=== PATIENT | female | born 1970 | race American Indian/Alaskan Native ===

== ENCOUNTER 2018-12-28 19:32 | Emergency (ER) | payer MEDICARE, MEDICAID ==
--- NOTE | 2018-12-28 20:01 | Emergency Department Report ---
Blank Doc - Documentation Documentation: 48 y/o female comes in for left ankle pain after stepping down stair heard her left ankle pop.
--- NOTE | 2018-12-28 21:16 | XRay Report ---
PROCEDURE: XR ANKLE 3+V LT TECHNIQUE: Left ankle radiographs, AP, lateral, and oblique views. HISTORY: ankle swelling and pain. COMPARISONS: None . FINDINGS: Fracture (s) and/or Dislocation(s): Small avulsion fracture is noted at the tip of lateral malleolus . Alignment: Normal . Joint space(s): Normal . Soft tissues: Mild degree soft tissue swelling is noted over the lateral malleolus . Bone mineralization: Normal . Foreign bodies: None . Calcaneal spurring: None . IMPRESSION: A small avulsion fracture is noted at the tip of lateral malleolus. This document is electronically signed by Ketan Vang MD., Dec 28 2018 09:14:25 PM ET
[2018-12-28] MEDS ORDERED: PERCOCET 5/325 PO ONE (22:56)
[2018-12-28] MEDS ORDERED: IBUPROFEN PO ONE (22:57)
[2018-12-28] MEDS ORDERED: ZOFRAN ODT PO ONE (22:57)
[2018-12-28] MEDS ORDERED: BENADRYL PO ONE ×2 (23:08→23:10)
--- NOTE | 2018-12-29 00:49 | Emergency Department Report ---
ED Fall HPI - General Chief Complaint: Extremity Injury, Lower Stated Complaint: LEFT ANKLE INJURY Time Seen by Provider: 12/28/18 21:00 Source: patient, EMS Mode of arrival: Wheelchair - History of Present Illness Initial Comments: Patient is a 48-year-old -British female with a history of chronic sickle cell disease with frequent exacerbations, chronic low back pain and sciatica who presents with a complaint of acute onset severe left ankle and foot pain after she slipped and fell down on the floor in a [place] theater 2 hours ago and twisted the left foot and ankle about 2 hours ago. Patient denies head or neck injury, no back pain, abdominal pain, loss of consciousness, seizures, syncope, chest pain, shortness of breath, numbness and tingling or weakness of l eft leg and change in vision. Patient states that the pain is worse with ambulation. MD Complaint: fall, other (left ankle pain and swelling) -: Sudden, hour(s) (2) Fall From: standing, other (slipped and fell down on the floor) When Fall Occurred: 1-3 hours [employer] Fall Witnessed: yes, by family Place Fall Occurred: other (Movie Theater) Loss of Consciousness: none Prolonged Down Time?: no Symptoms Prior to Fall: none Location: other (left ankle and foot) Location - Extremities: Left: Ankle (pain, swelling and deforty), Foot (pain) Severity scale (0 -10): 8 Quality: sharp, aching Context: tripped/slipped Associated Symptoms: denies: headache, neck pain, numbness, weakness, chest paint, shortness of breath, abdominal pain, hematuria, unable to walk, lightheaded, vertigo, confusion - Related Data Previous Rx's Medication Instructions Recorded Last Taken Type Ibuprofen [Motrin] 800 mg PO Q8HR PRN #20 tablet 12/29/18 Unknown Rx Oxycodone HCl/Acetaminophen 1 each PO Q6H #12 tablet 12/29/18 Unknown Rx [Percocet 7.5/325 mg] Allergies Allergy/AdvReac Type Severity Reaction Status Date / Time morphine AdvReac Hives Verified 12/28/18 23:12 Opioids - Morphine Analogues AdvReac Hives Verified 12/28/18 23:11 ED Review of Systems ROS: Stated complaint: LEFT ANKLE INJURY Other details as noted in HPI Comment: All other systems reviewed and negative Constitutional: no symptoms reported, see HPI. denies: chills, diaphoresis, fever, malaise, weakness Eyes: as per HPI. denies: eye pain, eye discharge, vision change ENT: as per HPI. denies: ear pain, throat pain, dental pain, hearing loss, congestion Respiratory: no symptoms reported, see HPI. denies: cough, orthopnea, shortness of breath, SOB with exertion, SOB at rest Cardiovascular: as per HPI. denies: chest pain, palpitations, orthopnea, edema, syncope Endocrine: no symptoms reported, see HPI. denies: excessive sweating, flushing, intolerance to cold Gastrointestinal: as per HPI. denies: abdominal pain, nausea, vomiting, diarrhea, constipation, hematemesis, hematochezia Genitourinary: as per HPI. denies: frequency, hematuria Musculoskeletal: as per HPI, joint swelling (left ankle and foot), arthralgia (left ankle). denies: back pain Skin: as per HPI. denies: rash, lesions, change in color, change in hair/nails Neurological: as per HPI. denies: headache, weakness, numbness, paresthesias, confusion, abnormal gait, vertigo Psychiatric: as per HPI Hematological/Lymphatic: as per HPI ED Past Medical Hx - Past Medical History Previous Medical History?: Yes Hx Hypertension: Yes Hx Sickle Cell Disease: Yes - Surgical History Past Surgical History?: Yes Additional Surgical History: gastric bypass 2003 - Social History Smoking Status: Never Smoker Substance Use Type: None - Medications Home Medications: Home Medications Medication Instructions Recorded Confirmed Last Taken Type Ibuprofen [Motrin] 800 mg PO Q8HR PRN #20 tablet 12/29/18 Unknown Rx Oxycodone HCl/Acetaminophen 1 each PO Q6H #12 tablet 12/29/18 Unknown Rx [Percocet 7.5/325 mg] ED Physical Exam - General Limitations: No Limitations General appearance: in no apparent distress - Head Head exam: Present: atraumatic, normocephalic, normal inspection - Eye Eye exam: Present: normal appearance, PERRL, EOMI Pupils: Present: normal accommodation - ENT ENT exam: Present: normal exam, normal orophraynx, mucous membranes moist, TM's normal bilaterally, normal external ear exam - Neck Neck exam: Present: normal inspection, full ROM. Absent: tenderness - Respiratory Respiratory exam: Present: normal lung sounds bilaterally. Absent: respiratory distress, wheezes, rales, chest wall tenderness, decreased breath sounds - Cardiovascular Cardiovascular Exam: Present: regular rate, normal rhythm, normal heart sounds - GI/Abdominal GI/Abdominal exam: Present: soft. Absent: distended, tenderness, guarding, rebound, hyperactive bowel sounds, hypoactive bowel sounds - Rectal Rectal exam: Present: deferred - Extremities Exam Extremities exam: Present: tenderness (left ankle tenderness with limited ROM due to pain), normal capillary refill, joint swelling (left ankle). Absent: full ROM (due to pain), calf tenderness - Back Exam Back exam: Present: normal inspection, full ROM. Absent: tenderness, CVA tenderness (R), CVA tenderness (L), muscle spasm, paraspinal tenderness - Neurological Exam Neurological exam: Present: alert, oriented X3, CN II-XII intact, normal gait, reflexes normal - Psychiatric Psychiatric exam: Present: normal affect - Skin Skin exam: Present: warm, dry, intact, normal color ED Course Vital Signs 12/28/18 19:54 Temperature 98.4 F Pulse Rate 80 Respiratory 18 Rate Blood Pressure 153/101 O2 Sat by Pulse 99 Oximetry - Reevaluation(s) Reevaluation #1: 12/29/18 00:58 Patient is alert and oriented 3 and is not in distress. Patient is treated for pain in left ankle x-ray shows a small avulsion fracture at the tip of the left lateral malleolus. Patient's left ankle was splinted in a posterior OCL splint, and the patient fitted with crutches. On reevaluation, patient's pain is well controlled with medications. Patient was discharged home on pain medications and referred to the orthopedic surgeon Dr. Bearden for follow up. Patient was advised to return to the ED immediately if symptoms get worse. 12/29/18 01:01 ED Medical Decision Making - Radiology Data Radiology results: report reviewed, image reviewed Left ankle x-ray shows a small avulsion fracture at the tip of left lateral Malleolus. - Medical Decision Making Patient is alert and oriented 3 and is not in distress. Patient is treated for pain in left ankle x-ray shows a small avulsion fracture at the tip of the left lateral malleolus. Patient's left ankle was splinted in a posterior OCL splint, and the patient fitted with crutches. On reevaluation, patient's pain is well controlled with medications. Patient was discharged home on pain medications and referred to the orthopedic surgeon Dr. Bearden for follow up. Patient was advised to return to the ED immediately if symptoms get worse. - Differential Diagnosis Left ankle fracture, Left ankle sprain, left foot contusion Critical care attestation.: If time is entered above; I have spent that time in minutes in the direct care of this critically ill patient, excluding procedure time. ED Disposition Clinical Impression: Fracture of left ankle, lateral malleolus Qualifiers: Encounter type: initial encounter Fracture type: closed Fracture alignment: displaced Qualified Code(s): S82.62XA - Displaced fracture of lateral malleolus of left fibula, initial encounter for closed fracture Sprain of left foot Qualifiers: Encounter type: initial encounter Qualified Code(s): S93.602A - Unspecified sprain of left foot, initial encounter Disposition: TO HOME OR SELFCARE Is pt being admited?: No Does the pt Need Aspirin: No Condition: Stable Instructions: Ankle Fracture (ED), Foot Sprain (ED) Additional Instructions: Take medications with food, drink plenty of fluids and follow-up with the orthopedic surgeon, Dr. Bearden evaluation and treatment. return to the ed immediately if symptoms get worse. Prescriptions: Ibuprofen [Motrin] 800 mg PO Q8HR PRN #20 tablet PRN Reason: Pain , Severe (7-10) Oxycodone HCl/Acetaminophen [Percocet 7.5/325 mg] 1 each PO Q6H #12 tablet Referrals: CONY BEARDEN MD [Staff Physician] - 3-5 Days Time of Disposition: 00:49 Print Language: THAI
[2018-12-29 01:13] VITALS: BP 147/79
== END 2018-12-29 01:03 | disposition home or self-care (01) ==
LOC: ED 19:32
DX: S82.62XA Displaced fracture of lateral malleolus of left fibula, initial encounter for closed fracture (principal); S93.602A Unspecified sprain of left foot, initial encounter; G89.29 Other chronic pain; I10 Essential (primary) hypertension; D57.1 Sickle-cell disease without crisis; Z88.6 Allergy status to analgesic agent; Z88.5 Allergy status to narcotic agent; W01.0XXA Fall on same level from slipping, tripping and stumbling without subsequent striking against object, initial encounter; Y92.254 Theater (live) as the place of occurrence of the external cause; Y99.8 Other external cause status
CPT/HCPCS: Q0162

== ENCOUNTER 2019-01-08 07:23 | Outpatient (CLI) | payer OTHER ==
[2019-01-08 08:54] LABS: Basophils % (Auto) 0.9 % (0.0-1.8); Eosinophils # (Auto) 0.2 K/mm3 (0.0-0.4); Eosinophils % (Auto) 3.1 % (0.0-4.3); Hematocrit 37.4 % (30.3-42.9); Hemoglobin 12.7 gm/dl (10.1-14.3); Lymphocytes # (Auto) 1.9 K/mm3 (1.2-5.4); Lymphocytes % (Auto) 34.6 % (13.4-35.0); Mean Corpuscular HGB Conc 34 % (30-34); Mean Corpuscular Volume 85 fl (79-97); Monocytes # (Auto) 0.4 K/mm3 (0.0-0.8); Monocytes % (Auto) 6.9 % (0.0-7.3); Platelet Count 260 K/mm3 (140-440); Red Blood Count 4.42 M/mm3 (3.65-5.03); Red Cell Distribution Width 16.7 % (13.2-15.2)
== END 2019-01-08 07:24 | disposition home or self-care (01) ==
LOC: PF 07:23
PROVIDERS: ATTEND Internal Medicine
DX: Z02.71 Encounter for disability determination (principal); J45.909 Unspecified asthma, uncomplicated; D57.1 Sickle-cell disease without crisis; I10 Essential (primary) hypertension; F31.9 Bipolar disorder, unspecified; A41.9 Sepsis, unspecified organism
CPT/HCPCS: 36415; 85025; 94010